=== PATIENT | male | born 1980 | race Caucasian/White ===

== ENCOUNTER → 2021-01-29 15:37 | Outpatient (CLI) | payer OTHER, SELFPAY ==
--- NOTE | 2021-01-29 | DI.MRI.S_ITS ---
PROCEDURE: MR SHOULDER RT WO CON INDICATIONS: right shoulder pain TECHNIQUE: Noncontrast oblique coronal T2 fast spin echo with fat saturation, oblique sagittal T1 spin echo and T2 fast spin echo with fat saturation, axial T1 spin echo and T2 fast spin echo with fat saturation through the shoulder. COMPARISON: None. FINDINGS: Rotator cuff: Supraspinatus and infraspinatus tendinopathy. Small slit-like bursal sided partial thickness tear at the footprint of the supraspinatus. No retracted appearance. Teres minor appears intact. Subscapularis tendinopathy and mild thickening. No atrophy of the rotator cuff muscles although there is fatty infiltration of the supraspinatus and infraspinatus. Bones and bursae: No bone marrow contusions or fractures. Moderate acromioclavicular joint degeneration. Moderate glenohumeral degenerative joint disease. Acromion demonstrates conventional anatomy, without an os acromiale. Mild subacromial-subdeltoid bursitis. Capsule and soft tissues: Labrum: Posterior labral tear is noted with glenoid rim spurring and sclerosis. There is a 3 mm posterior paralabral cyst noted on image 14/6. Macerated appearance of the superior labrum,. Long head of the biceps tendon intact. The rotator interval appears normal, without fibrosis. Coracohumeral ligament intact. IMPRESSION: Chronic posterior labral tear with associated 3 mm paralabral cyst. Ill-defined macerated appearance of the superior labrum, slightly greater than expected for reported age. This could reflect ill-defined probably chronic tear or advanced degeneration. Supraspinatus, infraspinatus and subscapularis tendinopathy, with a small slit-like bursal sided partial thickness tear at the footprint of the supraspinatus tendon. Right shoulder degenerative joint disease. Mild subacromial-subdeltoid bursitis Dictated by: John Castillo M.D. on 01/29/2021 at 16:37 Approved by: John Castillo M.D. on 01/29/2021 at 16:51
== END ==
PROVIDERS: PCP Family Medicine; Referring Provider Family Medicine; Visit Provider Family Medicine
DX: M19.011 Primary osteoarthritis, right shoulder (principal); M75.51 Bursitis of right shoulder; S43.431A Superior glenoid labrum lesion of right shoulder, initial encounter
CPT/HCPCS: 73221

== ENCOUNTER → 2025-03-21 09:47 | Outpatient (CLI) | payer OTHER, SELFPAY ==
[2025-03-21 10:17] LABS: Add Manual Diff / Slide Review NO; Basophils Absolute Auto 100 /uL (0-100); Basophils Percent Auto 0.8 % (0-2); Eosinophils Absolute Auto 100 /uL (0-450); Eosinophils Percent Auto 1.5 % (2-4); Hematocrit 47.7 % (41-53); Hemoglobin 16.1 g/dL (13.5-17.5); Lymphocytes Absolute Auto 2600 /uL (1100-4500); Lymphocytes Percent Auto 34.4 % (25-40); Mean Corpuscular HGB Conc 33.7 % (30-36); Mean Corpuscular Hemoglobin 28.5 PG (26-34); Mean Corpuscular Volume 84.4 fL (80-100); Monocytes Absolute Auto 800 /uL (0-900); Monocytes Percent Auto 10.1 % (3-14); Neutrophils Absolute Auto 4000 /uL (1500-7000); Neutrophils Percent Auto 53.2 % (50-75); Platelet Count 228 X10^3/uL (150-400); Red Blood Cell Count 5.65 X10^6/uL (4.5-5.9); Red Cell Distribution Width 14.1 % (11.6-14.8); White Blood Cell Count 7.5 X10^3/uL (4.5-11.0)
[2025-03-21 10:24] LABS: Hemoglobin A1C% w Est Avg Glu 5.3 % (4.0-6.0)
[2025-03-21 10:48] LABS: Alanine Aminotransferase 98 IU/L (<50); Albumin 4.9 g/dL (3.5-5.0); Albumin Globulin Ratio 1.7 (1.0-2.8); Alkaline Phosphatase 55 U/L (38-126); Aspartate Aminotransferase 55 IU/L (17-59); BUN Creatinine Ratio 11.8 (6-22); Bilirubin Total 0.9 mg/dL (0.2-1.3); Blood Urea Nitrogen 12 mg/dL (9-20); Calcium 9.5 mg/dL (8.4-10.2); Carbon Dioxide 26 mmol/L (22-32); Chloride 103 mmol/L (98-107); Cholesterol 226 mg/dL (140-199); Estimated Glomerular Filt Rate > 60 mL/min (>60); Globulin 2.9 g/dL (1.7-4.1); Glucose 100 mg/dL (70-99); HDL Cholesterol 43 mg/dL (40-60); HEMOLYSIS < 15 (0-50); LDL Cholesterol Calculated 128 mg/dL (<100); Potassium 4.4 mmol/L (3.4-5.1); Sodium 138 mmol/L (137-145); Total Protein 7.8 g/dL (6.3-8.2); Triglycerides 273 mg/dL (35-150)
[2025-03-21 11:16] LABS: TSH w/ Reflex to FT4 1.52 uIU/mL (0.47-4.68)
[2025-03-21 11:19] LABS: Testosterone 328 ng/dL (132-813)
== END ==
PROVIDERS: PCP Family Medicine; Referring Provider Family Medicine; Visit Provider Family Medicine
DX: I10 Essential (primary) hypertension (principal); R53.83 Other fatigue; E78.5 Hyperlipidemia, unspecified
CPT/HCPCS: 36415; 80053; 80061; 83036; 84403; 84443; 85025

== ENCOUNTER → 2025-04-17 14:44 | Outpatient (CLI) | payer OTHER, SELFPAY ==
--- NOTE | 2025-04-18 08:26 | DI.NM.S_ITS ---
DATE OF SERVICE: 04/17/2025 EXERCISE STRESS TEST INDICATION: Shortness of breath, hypertension, DRAKE. CARDIAC STRESS: Patient underwent exercise stress test under the supervision of an attending staff. The patient walked on Se protocol for 8 minutes and 26 seconds, achieved maximum heart rate of 170, which was 97% of target heart rate, MANJU positive 25%, 10.1 METS of workload. Resting blood pressure 140/98. During stress, peak blood pressure 260/130, suggestive of significant hypertensive response. In the end of recovery, blood pressure 168/100. Baseline rhythm sinus. During stress, no convincing ischemic changes seen. No significant arrhythmias. No chest pain. Had shortness of breath. Normal recovery. CONCLUSION: Exercise stress test is negative for inducible ischemia. Diminished exercise tolerance. Markedly hypertensive blood pressure response with peak blood pressure 260/130. In recovery, blood pressure decreased to 168/100. No significant arrhythmias. No chest pain. Had shortness of breath. The patient's weight is 281 pounds. Consider aggressive risk factor modification and blood pressure management. Marlon Rodriguez - LUX/adán/CAROL doc#: [id number]/job#: [id number] dd: 04/17/2025 17:05:00 dt: 04/17/2025 17:09:00 DICTATING /COPIES TO: Jordan Hope MD COPIES MNE: CHRISTIANO;
== END ==
PROVIDERS: PCP Family Medicine; Referring Provider Family Medicine; Visit Provider Family Medicine
DX: R06.02 Shortness of breath (principal); I10 Essential (primary) hypertension; E66.9 Obesity, unspecified
CPT/HCPCS: 93017

== ENCOUNTER 2025-05-08 12:40 | Day surgery (SDC) | payer OTHER, SELFPAY ==
--- NOTE | 2025-05-08 13:12 | PM.HP.IH.1 ---
History of Present Illness History of Present Illness Date Patient Seen: 05/08/25 Chief complaint: Colonoscopy Narrative: First screening colonoscopy [facility] Medical History (Updated 05/06/25 @ 14:08 by Jose M Carey MD) Shoulder pain Ankle pain Snoring Obesity (BMI 30-39.9) Hypertension Fatigue Obstructive sleep apnea syndrome Surgical History (Updated 06/16/23 @ 20:47 by Hawa Raines) Anesthesia History of Achilles tendon repair Family History (Updated 06/16/23 @ 20:50 by Hawa Raines) Family/Other Loud snoring Restless legs Diabetes mellitus Father Hypertension Mother Loud snoring Sleep apnea Obesity Hypertension Heart disease Hyperlipidemia Grandmother Diabetes mellitus Grandfather COPD (chronic obstructive pulmonary disease) Grandmother Cancer Diabetes mellitus Stroke Meds Home Medications and Allergies Home Medications ?Medication ?Instructions ?Recorded ?Confirmed ?Type atorvastatin 20 mg tablet 20 mg PO DAILY #90 tabs 05/06/25 05/06/25 Rx lisinopril 40 mg tablet 40 mg PO DAILY #90 tabs 05/06/25 05/06/25 Rx Allergies Allergy/AdvReac Type Severity Reaction Status Date / Time No Known Drug Allergies Allergy Unverified 05/06/25 13:21 Exam Narrative Exam Narrative: Oropharynx free of lesions Assessment & Plan Assessment & Plan narrative: First screening colonoscopy. Risks, benefits, alternatives have been explained. Time-Based Coding :: [TOTAL MINUTES] spent with patient and on the chart (including review of chart, obtaining history, exam, reviewing outside data, placing orders, documenting exam and treatment plan, and counseling patient) on [DATE]. [employer] Officer Document charge(s): No
[2025-05-08 13:13] VITALS: BP 143/98; PULSE 80; RESP 17; TEMP 36.1; O2SAT 98
--- NOTE | 2025-05-08 13:14 | PM.OP.COLON ---
Operative Date/Time/Diagnoses Date of procedure: 05/08/25 Time of procedure: 14:21 Pre-op diagnosis: See indication and findings Post-op diagnosis: same Procedure & Clinicians Study performed: Colonoscopy Same procedure(s) as scheduled: Yes Indications: First screening colonoscopy Surgeon: Leeann Lamas Anesthesia Type: Other Procedure Notes Procedure in detail: After informed consent was obtained the patient was placed in left lateral decubitus position. The video colonoscope was placed the rectum slowly advanced cecum. Preparation was good. On slow withdrawal mucosa was carefully examined. The scope was removed. The patient tolerated the procedure well. Blood loss none Complications none Sedation mac Findings 1. Normal colonoscopy to cecum Patient should have follow-up colonoscopy in 10 years
[2025-05-08] MEDS: LACTATED RINGERS 1,000 ML 42 ML IV (13:17)
[2025-05-08 14:25] VITALS: BP 126/83; PULSE 65; RESP 14; O2SAT 98
[2025-05-08 14:32] VITALS: BP 144/100; PULSE 64; RESP 19; TEMP 36.9; O2SAT 98
== END 2025-05-08 14:40 | disposition home or self-care (01) ==
PROVIDERS: PCP Family Medicine; Referring Provider Internal Medicine Gastroenterology; Visit Provider Internal Medicine Gastroenterology
PROC: 0DJD8ZZ Inspection of Lower Intestinal Tract, Via Natural or Artificial Opening Endoscopic (ICD-10-PCS; CPT 45378; principal; 2025-05-08 14:00)
DX: Z12.11 Encounter for screening for malignant neoplasm of colon (principal)
CPT/HCPCS: 45378; J2405; J2704